=== PATIENT | male | born 1955 | race Caucasian/White ===

== ENCOUNTER → 2019-11-21 | Outpatient (CLI) | payer OTHER ==
--- NOTE | 2019-11-21 09:53 | RADIOLOGY REPORT (SQ) ---
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 TECHNIQUE: Multiplanar imaging includes noncontrasted T1, T2, FLAIR, and Diffusion with ADC map seq uences. Contrast enhanced T1 images. Images stored on PACS. CONTRAST TYPE AND DOSE: 10 mL Dotarem. RENAL FUNCTION: Not indicated. ACR Type II contrast agent associated with few, if any, unconfounded cases of NSF LIMITATIONS: None. FINDINGS: ANATOMY: No anomalies. Normal vascular flow voids. Pituitary fossa normal. CSF SPACES: Normal size and contour. No hemorrhage. CEREBRUM: A few high-signal intensity lesions scattered throughout the white matter on FLAIR imaging with distribution suggesting chronic microvascular ischemic change. Sulci and gyri normal in size and contour. No evidence of hemorrhage, mass or extraaxial fluid collection. No enhancing lesions. POSTERIOR FOSSA: Chronic ischemic changes in the cameron. No hemorrhage. No edema, masses or mass effect . Internal auditory canals, cerebello-pontine angles, mastoids normal. DIFFUSION: Negative for acute or subacute infarction. ORBITS: No masses. Globes normal. PARANASAL SINUSES: No fluid levels. Mucosa normal. OTHER: No other significant finding. IMPRESSION: No evidence of metastatic disease. EVIDENCE OF ACUTE STROKE: NO. TECHNICAL DOCUMENTATION: JOB ID: [id number] 2010 [employer]- All Rights Reserved Reading location - IP/workstation name: [email or web address]
--- NOTE | 2019-11-22 11:18 | RADIOLOGY REPORT (SQ) ---
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 TECHNIQUE: Post IV contrasted scanning from skull base through lung apices with review of bone, soft tissue and lung windows. Reconstructed coronal and sagittal MPR images reviewed. All images stored on PACS. All CT scanners at this facility use dose modulation, iterative reconstruction, and/or weight based d osing when appropriate to reduce radiation dose to as low as reasonably achievable (ALARA). [facility]: Dose Right [facility]: CareDose [facility]: Dose Right [facility]: Teradose 4D [facility]: Aquicore CONTRAST TYPE AND DOSE: contrast/concentration: Isovue 350.00 mg/ml; Total Contrast Delivered: 75.0 ml; Total Saline Delivered: 55.0 ml RENAL FUNCTION: Creatinine 0.7 RADIATION DOSE: 14.6 mGy . LIMITATIONS: None. FINDINGS: SKULL BASE: Inferior brain parenchyma unremarkable. MAJOR SALIVARY GLANDS: No solid or cystic masses. No inflammatory changes. LYMPHADENOPATHY: No adenopathy. Surgical clips post right radical neck dissection MUCOSAL MASSES OR ASYMMETRY: There is diffuse mucosal irregularity along the vallecular extending int o the tongue base. Exact dimensions of residual tumor are difficult to measure, however in the right lower tongue base, an ill defined increased density on axial image 51 is present measuring 2 x 2.5 c m size which could represent residual tumor. LARYNX/CORDS: Thickening of the epiglottis likely reflecting post radiation change. Tumor involves c ords unremarkable. Upper trachea intact. VASCULAR STRUCTURES: The major vessels are patent. 50% stenosis proximal left subclavian artery axia l image 102. LUNG APICES: Patchy airspace disease is present and a rind upper lobe on axial image 113 123. This c ould represent minimal aspiration pneumonia BONES: Degenerative disc change throughout the cervical spine with without significant central or for aminal stenosis THYROID: Normal size. No masses. PARANASAL SINUSES: Clear. OTHER: Right-sided permanent central line tip superior vena cava. IMPRESSION: Findings worrisome for residual tumor in the vallecular extending into the right tongue base. Post prior right radical neck dissection. Minimal patchy airspace disease in the right upper lobe, question aspiration TECHNICAL DOCUMENTATION: JOB ID: [id number] Quality ID # [id number]: Final reports with documentation of one or more dose reduction techniques (e.g., Au tomated exposure control, adjustment of the mA and/or kV according to patient size, use of iterative reconstruction technique) 2010 [employer]- All Rights Reserved Reading location - IP/workstation name: [email or web address]
== END ==
LOC: RAD 08:12
PROVIDERS: ATTEND Nurse Practitioner Family
DX: C01 Malignant neoplasm of base of tongue (principal)
CPT/HCPCS: 82565; 70553; 70491; A9576

== ENCOUNTER 2019-12-15 17:01 | Emergency (ER) | payer OTHER ==
--- NOTE | 2019-12-15 17:20 | ER Document Report ---
ED Medical Screen (RME) - General Chief Complaint: Nose Bleed Stated Complaint: NOSE BLEED Time Seen by Provider: 12/15/19 17:14 Primary Care Provider: MENDEL CABAN FNP-C [Primary Care Provider] - Follow up as needed Mode of Arrival: Ambulatory Information source: Patient Notes: HPI; 64-year-old male past medical history significant for tongue cancer status post chemoradiation presents emergency room with concerns for either epistaxis or bleeding from the back of his tongue. States he was sitting at his office when he noticed blood coming out of his nose and out of the back of his throat lasted about 15 to 20 minutes. Has since resolved. He denies any trauma or injury. No previous history of epistaxis. PE: Alert oriented x3, moderate distress noted. Lungs are clear to auscultation without rales rhonchi wheezes, heart regular rate rhythm without murmurs rubs or gallops, there is dried blood up to the right nare, there is blood noted to the posterior pharynx and tongue. Unable to locate source in triage. I have greeted and performed a rapid initial assessment of this patient. A comprehensive ED assessment and evaluation of the patient, analysis of test results and completion of medical decision making process will be conducted by an additional ED providers. - Related Data Allergies/Adverse Reactions: Penicillins Allergy (Verified 12/15/19 17:14) Physical Exam - Vital signs Vitals: Temp Pulse Resp BP Pulse Ox 98 F 79 16 129/78 H 96 12/15/19 17:08 12/15/19 17:08 12/15/19 17:08 12/15/19 17:08 12/15/19 17:08 Course - Vital Signs Vital signs: Temp Pulse Resp BP Pulse Ox 98 F 79 16 129/78 H 96 12/15/19 17:08 12/15/19 17:08 12/15/19 17:08 12/15/19 17:08 12/15/19 17:08 Doctor's Discharge - Discharge Referrals: MENDEL CABAN FNP-C [Primary Care Provider] - Follow up as needed
[2019-12-15 19:28] LABS: ABSOLUTE EOSINOPHILS # (AUTO) 0.1 10^3/uL (0.0-0.6); ABSOLUTE LYMPHOCYTES (AUTO) 0.3 10^3/uL (0.5-4.7); ABSOLUTE MONOCYTES (AUTO) 0.4 10^3/uL (0.1-1.4); ABSOLUTE NEUT (AUTO) 4.2 10^3/uL (1.7-8.2); BASOPHILS % (AUTO) 0.3 % (0-2); EOSINOPHILS % (AUTO) 1.8 % (0-6); HEMATOCRIT 27.1 % (37.9-51.0); HEMOGLOBIN 9.6 g/dL (13.5-17.0); LYMPHOCYTES % (AUTO) 6.4 % (13-45); MEAN CORPUSCULAR HGB CONC 35.4 g/dL (32.0-36.0); MEAN CORPUSCULAR VOLUME 93 fl (80-97); MONOCYTES % (AUTO) 7.9 % (3-13); PLATELET COUNT 248 10^3/uL (150-450); RED BLOOD COUNT 2.91 10^6/uL (4.35-5.55); RED CELL DISTRIBUTION WIDTH 14.7 % (11.5-14.0); SEGMENTED NEUTROPHILS % (AUTO) 83.6 % (42-78); TOTAL CELLS COUNTED % (AUTO) 100 %; WHITE BLOOD COUNT 5.1 10^3/uL (4.0-10.5)
[2019-12-15 19:38] LABS: INTERNATIONAL RATION (INR) 1.06; PROTHROMBIN TIME 13.8 SEC (11.4-15.4)
[2019-12-15 19:51] LABS: ALBUMIN 3.6 g/dL (3.5-5.0); ALKALINE PHOSPHATASE 359 U/L (38-126); ASPARTATE AMINO TRANSFERASE 44 U/L (17-59); BILIRUBIN,DIRECT 0.1 mg/dL (0.0-0.4); BILIRUBIN,TOTAL 0.5 mg/dL (0.2-1.3); BLOOD UREA NITROGEN 22 mg/dL (7-20); CALCIUM 9.2 mg/dL (8.4-10.2); CHLORIDE 98 mmol/L (98-107); GLUCOSE 99 mg/dL (75-110); POTASSIUM 4.5 mmol/L (3.6-5.0); TOTAL PROTEIN 6.3 g/dL (6.3-8.2)
[2019-12-15 19:56] LABS: CARBON DIOXIDE 33 mmol/L (22-30)
--- NOTE | 2019-12-15 19:56 | ER Document Report ---
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 He states that he had a sudden onset of "a massive amount" of blood from his nostrils and his mouth. He states that this lasted up until him driving into the department. He believes it came from his posterior throat. He denies any shortness of breath. He is not having any pain. He is not been coughing as of late. He is not on any blood thinners. The patient has undergone radiation in the past, currently only on the Keytruda. - Related Data Allergies/Adverse Reactions: Penicillins Allergy (Verified 12/16/19 01:16) Home Medications: hydrocodone, Keytruda Past Medical History - General Information source: Patient - Social History Smoking Status: Former Smoker Chew tobacco use (# tins/day): No Frequency of alcohol use: Occasional Drug Abuse: None Family History: Reviewed & Not Pertinent Patient has homicidal ideation: No Malignancy Medical History: Reports Other - Stage IV squamous cell carcinoma of the tongue Review of Systems - Review of Systems EENT: See HPI -: Yes All other systems reviewed and negative Physical Exam - Vital signs Vitals: Temp Pulse Resp BP Pulse Ox 98 F 79 16 129/78 H 96 12/15/19 17:08 12/15/19 17:08 12/15/19 17:08 12/15/19 17:08 12/15/19 17:08 - Notes Notes: This is a frail-appearing 64-year-old male, who appears older than his stated age, but in no acute distress. Head is normocephalic and atraumatic, pupils are equal round, reactive to light. He has evidence of dried blood in bilateral nares, no active source of bleeding. He has clotted and dried blood noted in the posterior pharynx, but with observation I do not appreciate any further active bleeding at this time. Heart is regular rate and rhythm, lungs encrustation bilaterally. Abdomen soft, nontender, active bowel sounds. Skin is warm and dry. Extremities without cyanosis or clubbing. Posterior calves are nontender. Patient is awake and alert, cooperative with examiner. Course - Re-evaluation Re-evalutation: 12/15/19 19:54 Patient presents to the emergency department for evaluation of bleeding. I agree with the patient, this is likely from his squamous cell. I do not see any active or heavy bleeding at this time. Patient's hemoglobin is 9.6. This is certainly not to a transfusional level, but it is low. The patient is unaware what his baseline hemoglobin is. I do not appreciate any active bleeding at this time. I would like to observe the patient here in the ED to evaluate for any rebleeding. I am awaiting the remainder of his labs. Patient is currently amenable to this plan. He is stable at this time, we will continue to monitor. 12/15/19 20:59 Patient monitored for some time. He has not had any rebleeding. I did explain to the patient that I found it was likely from his cancer, and recommend he follow-up with oncology as soon as possible. I also told him he should return immediately if his bleeding worsens. He voiced understanding was discharged. - Vital Signs Vital signs: Temp Pulse Resp BP Pulse Ox 98.0 F 56 L 16 109/66 96 12/15/19 21:20 12/15/19 21:20 12/15/19 21:20 12/15/19 21:20 12/15/19 21:20 - Laboratory Result Diagrams: 12/15/19 19:19 12/15/19 19:19 Laboratory results interpreted by me: 12/15/19 12/15/19 19:19 19:19 RBC 2.91 L Hgb 9.6 L Hct 27.1 L RDW 14.7 H Lymph % (Auto) 6.4 L Absolute Lymphs (auto) 0.3 L Seg Neutrophils % 83.6 H Sodium 134.2 L Carbon Dioxide 33 H Anion Gap 3 L BUN 22 H Alkaline Phosphatase 359 H Discharge - Discharge Clinical Impression: Bleeding Condition: Stable Disposition: HOME, SELF-CARE Additional Instructions: It is likely that the bleeding you are experiencing was coming from your tongue. Your hemoglobin today was 9.6, you should compare this to prior evaluations. Continue your regular medications as prescribed, and notify your oncologist of this finding. Follow-up with primary care this week. If you develop worsening or new concerning symptoms of any sort, please return immediately to the emergency department for evaluation. Referrals: MENDEL CABAN FNP-C [Primary Care Provider] - Follow up as needed
[2019-12-15 19:57] LABS: ANION GAP 3 (5-19)
[2019-12-15 21:21] VITALS: BP 109/66
== END 2019-12-15 21:22 | disposition home or self-care (01) ==
LOC: ER 17:01
DX: R04.0 Epistaxis (principal); K13.79 Other lesions of oral mucosa; C01 Malignant neoplasm of base of tongue; Z79.899 Other long term (current) drug therapy; Z79.891 Long term (current) use of opiate analgesic; Z92.3 Personal history of irradiation; Z87.891 Personal history of nicotine dependence
CPT/HCPCS: 36415; 80053; 85025; 85610; 99283

== ENCOUNTER 2019-12-16 01:09 | Emergency (ER) | payer OTHER ==
[2019-12-16] MEDS ORDERED: TRANEXAMIC ACID INJ/PF 1,000 MG/10 ML SDV NEB ONE (03:43)
[2019-12-16] MEDS ORDERED: NORMAL SALINE 500 ML IV ONE (03:44)
--- NOTE | 2019-12-16 03:46 | ER Document Report ---
ED ENT - General Chief Complaint: GI Bleeding Stated Complaint: BLEEDING/THROAT Time Seen by Provider: 12/16/19 03:38 Primary Care Provider: MENDEL CABAN FNP-C [Primary Care Provider] - Follow up as needed Notes: Patient is a 64-year-old male that comes emergency department by EMS for chief complaint of bleeding from the back of his tongue. 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 He states that he was seen here earlier but it stopped, he states that after he went home and started bleeding heavily, he states that he coughed slight spit out "large amounts of blood multiple times" from his nose and mouth. He states he also started getting lightheaded and he thought he was going to pass out. He denies passing out or current dizziness. He is not on a blood thinner. He is a former smoker. He states he was previo usly on radiation but he had recurrence of the cancer so they switched to Keytruda. He is not on any other medications except as needed hydrocodone. He states he sees Oncologist Dr. Archer. - Related Data Allergies/Adverse Reactions: Penicillins Allergy (Verified 12/16/19 01:16) Past Medical History - General Information source: Patient - Social History Smoking Status: Former Smoker Frequency of alcohol use: None Drug Abuse: None Lives with: Alone Family History: Reviewed & Not Pertinent Patient has homicidal ideation: No Malignancy Medical History: Reports Other - Stage IV squamous cell carcinoma of tongue - Immunizations Immunizations up to date: Yes Hx Diphtheria, Pertussis, Tetanus Vaccination: Yes Review of Systems - Review of Systems Constitutional: No symptoms reported EENT: See HPI Cardiovascular: See HPI Respiratory: No symptoms reported Gastrointestinal: No symptoms reported Genitourinary: No symptoms reported Male Genitourinary: No symptoms reported Musculoskeletal: No symptoms reported Skin: No symptoms reported Hematologic/Lymphatic: No symptoms reported Neurological/Psychological: No symptoms reported Physical Exam - Vital signs Vitals: Temp Pulse Resp BP Pulse Ox 97.4 F 89 16 119/70 92 12/16/19 01:13 12/16/19 01:13 12/16/19 01:13 12/16/19 01:13 12/16/19 01:13 - Notes Notes: GENERAL: Somewhat cachectic in appearance, slightly pale, but alert and cooperative HEAD: Normocephalic, atraumatic. EYES: Pupils equal, round, and reactive to light. Extraocular movements intact. ENT: Oral mucosa moist, tongue midline. There does appear to be current b leeding from the back of the tongue with bleeding down the posterior pharynx. Blood also noted on the lips and patient is spitting out blood intermittently. Airway patent. Nares patent without epistaxis noted, sinuses non-tender NECK: Full range of motion. Supple. Trachea midline. No lymphadenopathy. LUNGS: Clear to auscultation bilaterally, no wheezes, rales, or rhonchi. No respiratory distress. Non-tender chest wall. HEART: Regular rate and rhythm. No murmur ABDOMEN: Soft, non-tender. Non-distended. EXTREMITIES: Moves all 4 extremities spontaneously. No edema, normal radial and dorsalis pedis pulses bilaterally. No cyanosis. BACK: no cervical, thoracic, lumbar midline tenderness. No saddle anesthesia, normal distal neurovascular exam. Moves all extremities in full range of motion. NEUROLOGICAL: Alert and oriented x3. Normal speech. Cranial nerves II through XII grossly intact. Strength 5/5 in all extremities. PSYCH: Normal affect, normal mood. SKIN: Slightly pale Course - Re-evaluation Re-evalutation: On initial evaluation current bleeding is noted in the posterior aspect of the tongue and down the posterior pharynx, patient is spitting and dabbing at the blood on his tongue and on his lips. Vital signs unremarkable. CBC shows hemoglobin downtrending from 9.6 earlier to 8.5 now. Type and screen has been performed. Coagulation studies unremarkable. Patient is not on a blood thinner. 12/16/19 04:45 Unfortunately patient just received the TXA nebulized treatment. He has not completed the treatment yet. Based on quick evaluation bleeding definitely appears to have slowed down significantly however. Patient with no complaints currently, he is not hypotensive or tachycardic. 12/16/19 On reevaluation patient does not appear to be bleeding at all. Patient had received a 500 cc bolus of IV fluids as well. Patient has no current complaints. Discussed with Dr. Vasques, he recommends ENT consult because of patient's drop in hemoglobin and recurrent bleeding. Patient will be monitored for the next 1.5 hours, rechecked, and then we have ENT telecommunications engineer this morning. 12/16/19 07:10 I spoke with ROSMERY Gregg on-call. He states the patient could need the area to be embolized. He states that he recommends the patient be seen in his clinic at 9 AM this morning. He also requests that I speak to patient's oncologist and inform them of patient's current status and situation. I called and spoke with Dr. Carver, discussed patient case and presentation, also discussed patient's low hemoglobin. He states that patient will be seen in close follow-up in the office, patient is to call today for this to happen. I discussed this with patient. Patient states he needs to be transferred to his house so he can drive to his appointment, he has no other concerns at this time. Discussed return precautions. Patient states understanding and agreement with plan. - Vital Signs Vital signs: Temp Pulse Resp BP Pulse Ox 97.4 F 89 15 133/76 H 100 12/16/19 01:16 12/16/19 01:13 12/16/19 06:01 12/16/19 06:01 12/16/19 06:01 - Laboratory Result Diagrams: 12/16/19 03:42 Laboratory results interpreted by me: 12/16/19 03:42 WBC 12.0 H D RBC 2.56 L Hgb 8.5 L Hct 23.9 L RDW 14.7 H Seg Neuts % (Manual) 95 H Lymphocytes % (Manual) 3 L Monocytes % (Manual) 2 L Abs Neuts (Manual) 11.4 H Abs Lymphs (Manual) 0.4 L Discharge - Discharge Clinical Impression: Hemorrhage of tongue Condition: Stable Disposition: HOME, SELF-CARE Additional Instructions: The bleeding has stopped temporarily. You need close follow-up and management. I spoke with ROSMERY Gregg on-call today. He requests that you be seen in his office today at 9 AM at the listed address. I also spoke with Dr. Carver, on-call for your oncologist. Please call them today to be seen in close follow-up for additional management of the cancer and also of your low blood counts. Come back for any concerning symptoms including heavy bleeding, passing out, difficulty breathing, or any other concerning symptoms. Referrals: KAVITA ARCHER MD [ACTIVE STAFF] - Follow up tomorrow NGUYỄN SUMMERS MD [ACTIVE STAFF] - 12/16/19
[2019-12-16 03:58] LABS: HEMATOCRIT 23.9 % (37.9-51.0); HEMOGLOBIN 8.5 g/dL (13.5-17.0); MEAN CORPUSCULAR HEMOGLOBIN 33.1 pg (27.0-33.4); MEAN CORPUSCULAR HGB CONC 35.4 g/dL (32.0-36.0); MEAN CORPUSCULAR VOLUME 93 fl (80-97); PLATELET COUNT 257 10^3/uL (150-450); RED BLOOD COUNT 2.56 10^6/uL (4.35-5.55); RED CELL DISTRIBUTION WIDTH 14.7 % (11.5-14.0)
[2019-12-16 03:59] LABS: PROTHROMBIN TIME 14.2 SEC (11.4-15.4)
[2019-12-16 04:00] LABS: PARTIAL THROMBOPLASTIN TIME 25.5 SEC (23.5-35.8)
[2019-12-16 04:18] LABS: ABSOLUTE LYMPHOCYTES# (MANUAL) 0.4 10^3/uL (0.5-4.7); ABSOLUTE MONOCYTES # (MANUAL) 0.2 10^3/uL (0.1-1.4); BASOPHILS % (MANUAL) 0 % (0-2); EOSINOPHILS % (MANUAL) 0 % (0-6); LYMPHOCYTES % (MANUAL) 3 % (13-45); MONOCYTES % (MANUAL) 2 % (3-13); PLATELET COMMENT ADEQUATE; RBC MORPHOLOGY COMMENT NORMO-CYTIC/CHROMIC; SEGMENTED NEUTROPHILS % (MAN) 95 % (42-78); TOTAL CELLS COUNTED 100
[2019-12-16 07:26] VITALS: BP 145/78
== END 2019-12-16 07:40 | disposition home or self-care (01) ==
LOC: ER 01:09
DX: K14.8 Other diseases of tongue (principal); C01 Malignant neoplasm of base of tongue; Z79.899 Other long term (current) drug therapy; Z88.0 Allergy status to penicillin
CPT/HCPCS: 94640; 99283; 96360; 86900; 86901; 36415; 86850; 85025; 85610; 85730; J7040; J3490